=== PATIENT | female | born 1990 | race Caucasian/White ===

== ENCOUNTER 2018-11-08 17:14 | Emergency (ER) | payer OTHER ==
[2018-11-08] MEDS ORDERED: SODIUM CHLORIDE 0.9% 1,000 ML IV STA (17:53)
[2018-11-08] MEDS ORDERED: IPRATROPIUM-ALBUTEROL 3 ML NEB INHALATION STA (18:31)
--- NOTE | 2018-11-08 18:31 | ED ---
General Adult HPI - General Chief complaint: Syncope Stated complaint: Syncope Time Seen by Provider: 11/08/18 17:32 Source: patient, RN notes reviewed Mode of arrival: ambulatory Limitations: no limitations - History of Present Illness Initial comments: 27-year-old female without any significant past medical history presents to the emergency department for a chief complaint of syncope. Patient states this occurred just prior to arrival while she has at work. States that when she went to work she felt hot and sat down. States that when she stood up she got lightheaded and her vision went black. States she lost consciousness and was caught by her regional business development manager before she hit the ground. States that over the past few days she has had cough congestion and shortness of breath. States that at night she feels like she cannot get a deep breath. Denies any chest pain with this. Does admit to oral contraceptive use. Denies any recent travel. Patient denies any history of asthma but does admit to a smoking history as she is a current every day smoker. Patient has no other complaints at this time including chest pain, abdominal pain, nausea or vomiting, headache, or visual changes. - Related Data Home Medications Medication Instructions Recorded Confirmed Citalopram Hydrobromide [CeleXA] 20 mg PO DAILY 01/26/16 01/26/16 Norgestimate-Ethinyl Estradiol 1 tab PO DAILY 01/26/16 01/26/16 [Tri-Linyah Tablet] Previous Rx's Medication Instructions Recorded Ibuprofen [Motrin] 800 mg PO Q6HR PRN #30 tab 01/26/16 Albuterol Inhaler [Ventolin Hfa 1 - 2 puff INHALATION Q6HR PRN #1 11/08/18 Inhaler] inhaler predniSONE 50 mg PO DAILY #5 tablet 11/08/18 Allergies Allergy/AdvReac Type Severity Reaction Status Date / Time No Known Allergies Allergy Verified 11/08/18 17:23 Review of Systems ROS Statement: Those systems with pertinent positive or pertinent negative responses have been documented in the HPI. ROS Other: All systems not noted in ROS Statement are negative. Past Medical History Past Medical History: No Reported History History of Any Multi-Drug Resistant Organisms: None Reported Past Surgical History: No Surgical Hx Reported Past Psychological History: Anxiety Smoking Status: Current every day smoker Past Alcohol Use History: None Reported Past Drug Use History: None Reported General Exam Limitations: no limitations General appearance: alert, in no apparent distress Head exam: Present: atraumatic, normocephalic, normal inspection Eye exam: Present: normal appearance, PERRL, EOMI. Absent: scleral icterus, conjunctival injection, periorbital swelling ENT exam: Present: normal exam, normal oropharynx, mucous membranes moist, TM's normal bilaterally, normal external ear exam, other (Patient does have nasal congestion noted) Neck exam: Present: normal inspection, full ROM. Absent: tenderness, meningismus, lymphadenopathy Respiratory exam: Present: wheezes (Wheezing noted in the right lower lobe). Absent: respiratory distress, rales, rhonchi, stridor Cardiovascular Exam: Present: regular rate, normal rhythm, normal heart sounds. Absent: systolic murmur, diastolic murmur, rubs, gallop, clicks GI/Abdominal exam: Present: soft, normal bowel sounds. Absent: distended, tenderness, guarding, rebound, rigid Neurological exam: Present: alert, oriented X3 Psychiatric exam: Present: normal affect, normal mood Course Vital Signs 11/08/18 11/08/18 11/08/18 17:25 18:44 18:49 Temperature 98.3 F Pulse Rate 80 65 62 Respiratory 18 Rate Blood Pressure 110/72 O2 Sat by Pulse 98 Oximetry 11/08/18 19:35 Temperature 98 F Pulse Rate 80 Respiratory 16 Rate Blood Pressure 104/57 O2 Sat by Pulse 98 Oximetry - Reevaluation(s) Reevaluation #1: 11/08/18 18:45 Discussed smoking cessation for greater than 3 minutes with patient EKG Findings - EKG Comments: EKG Findings:: Normal sinus rhythm, ventricular rate 78, ID interval 158, QTc 442 Medical Decision Making - Medical Decision Making 27-year-old female without any significant past medical history presents for syncope. This occurred just prior to arrival when she was at work. Patient stood up, got lightheaded and had a syncopal episode. No injuries. She has had cough congestion and shortness of breath over the past 2 days as well. Denies fevers or chills. Admits to history of asthma denies smoking. On exam patient does have wheezing noted in the right lower lung field. DuoNeb given, recommended no smoking. CBC shows a mild reactive leukocytosis of 11.5. A CMP is unremarkable. Urine contaminated with 46 squamous cells, culture pending. Chest x-ray negative for consolidation. Patient reevaluated, feeling better. Patient will be given steroids for wheezing. Will also be given inhaler. Recommended returning if she has any worsening symptoms. - Lab Data Result diagrams: 11/08/18 18:03 11/08/18 18:03 Lab Results 11/08/18 11/08/18 11/08/18 Range/Units 18:03 18:03 18:03 WBC 11.5 H (3.8-10.6) k/uL RBC 4.72 (3.80-5.40) m/uL Hgb 14.0 (11.4-16.0) gm/dL Hct 42.2 (34.0-46.0) % MCV 89.4 (80.0-100.0) fL MCH 29.7 (25.0-35.0) pg MCHC 33.2 (31.0-37.0) g/dL RDW 12.8 (11.5-15.5) % Plt Count 312 (150-450) k/uL Neutrophils % 72 % Lymphocytes % 17 % Monocytes % 5 % Eosinophils % 5 % Basophils % 1 % Neutrophils # 8.3 H (1.3-7.7) k/uL Lymphocytes # 1.9 (1.0-4.8) k/uL Monocytes # 0.6 (0-1.0) k/uL Eosinophils # 0.6 (0-0.7) k/uL Basophils # 0.1 (0-0.2) k/uL PT 9.4 (9.0-12.0) sec INR 0.8 (<1.2) D-Dimer 0.26 (<0.60) mg/L FEU Sodium 135 L (137-145) mmol/L Potassium 4.2 (3.5-5.1) mmol/L Chloride 101 (98-107) mmol/L Carbon Dioxide 28 (22-30) mmol/L Anion Gap 6 mmol/L BUN 15 (7-17) mg/dL Creatinine 0.97 (0.52-1.04) mg/dL Est GFR (CKD-EPI)AfAm >90 (>60 ml/min/1.73 sqM) Est GFR (CKD-EPI)NonAf 81 (>60 ml/min/1.73 sqM) Glucose 99 (74-99) mg/dL Calcium 9.3 (8.4-10.2) mg/dL Total Bilirubin 0.2 (0.2-1.3) mg/dL AST 17 (14-36) U/L ALT 17 (9-52) U/L Alkaline Phosphatase 66 (38-126) U/L Troponin I (0.000-0.034) ng/mL Total Protein 7.3 (6.3-8.2) g/dL Albumin 4.0 (3.5-5.0) g/dL Urine Color Urine Appearance (Clear) Urine pH (5.0-8.0) Ur Specific [place] (1.001-1.035) Urine Protein (Negative) Urine Glucose (UA) (Negative) Urine Ketones (Negative) Urine Blood (Negative) Urine Nitrite (Negative) Urine Bilirubin (Negative) Urine Urobilinogen (<2.0) mg/dL Ur Leukocyte Esterase (Negative) Urine RBC (0-5) /hpf Urine WBC (0-5) /hpf Ur Squamous Epith Cells (0-4) /hpf Urine Mucus (None) /hpf Urine HCG, Qual (Not Detectd) 11/08/18 11/08/18 11/08/18 Range/Units 18:03 18:05 18:05 WBC (3.8-10.6) k/uL RBC (3.80-5.40) m/uL Hgb (11.4-16.0) gm/dL Hct (34.0-46.0) % MCV (80.0-100.0) fL MCH (25.0-35.0) pg MCHC (31.0-37.0) g/dL RDW (11.5-15.5) % Plt Count (150-450) k/uL Neutrophils % % Lymphocytes % % Monocytes % % Eosinophils % % Basophils % % Neutrophils # (1.3-7.7) k/uL Lymphocytes # (1.0-4.8) k/uL Monocytes # (0-1.0) k/uL Eosinophils # (0-0.7) k/uL Basophils # (0-0.2) k/uL PT (9.0-12.0) sec INR (<1.2) D-Dimer (<0.60) mg/L FEU Sodium (137-145) mmol/L Potassium (3.5-5.1) mmol/L Chloride (98-107) mmol/L Carbon Dioxide (22-30) mmol/L Anion Gap mmol/L BUN (7-17) mg/dL Creatinine (0.52-1.04) mg/dL Est GFR (CKD-EPI)AfAm (>60 ml/min/1.73 sqM) Est GFR (CKD-EPI)NonAf (>60 ml/min/1.73 sqM) Glucose (74-99) mg/dL Calcium (8.4-10.2) mg/dL Total Bilirubin (0.2-1.3) mg/dL AST (14-36) U/L ALT (9-52) U/L Alkaline Phosphatase (38-126) U/L Troponin I <0.012 (0.000-0.034) ng/mL Total Protein (6.3-8.2) g/dL Albumin (3.5-5.0) g/dL Urine Color Yellow Urine Appearance Cloudy H (Clear) Urine pH 6.0 (5.0-8.0) Ur Specific [place] 1.032 (1.001-1.035) Urine Protein 1+ H (Negative) Urine Glucose (UA) Negative (Negative) Urine Ketones Trace H (Negative) Urine Blood Trace H (Negative) Urine Nitrite Negative (Negative) Urine Bilirubin Negative (Negative) Urine Urobilinogen 3.0 (<2.0) mg/dL Ur Leukocyte Esterase Large H (Negative) Urine RBC 5 (0-5) /hpf Urine WBC 16 H (0-5) /hpf Ur Squamous Epith Cells 46 H (0-4) /hpf Urine Mucus Occasional H (None) /hpf Urine HCG, Qual Not Detected (Not Detectd) Disposition Clinical Impression: Syncope, Viral upper respiratory infection Disposition: HOME SELF-CARE Condition: Good Instructions (If sedation given, give patient instructions): Syncope (ED), Upper Respiratory Infection (ED) Additional Instructions: Please take steroid as directed. Use inhaler as needed. Follow-up with primary care in 1-2 days. Return to the emergency department if you have any worsening symptoms. Prescriptions: predniSONE 50 mg PO DAILY #5 tablet Albuterol Inhaler [Ventolin Hfa Inhaler] 1 - 2 puff INHALATION Q6HR PRN #1 inhaler PRN Reason: Shortness Of Breath Is patient prescribed a controlled substance at d/c from ED?: No Referrals: Jordana Becker MD [Primary Care Provider] - 1-2 days Time of Disposition: 19:35
[2018-11-08 18:36] LABS: Basophils # (A) 0.1 k/uL (0-0.2); Basophils % (A) 1 %; Eosinophils # (A) 0.6 k/uL (0-0.7); Eosinophils % (A) 5 %; HCT 42.2 % (34.0-46.0); Lymphocytes # (A) 1.9 k/uL (1.0-4.8); Lymphocytes % (A) 17 %; MCH 29.7 pg (25.0-35.0); MCHC 33.2 g/dL (31.0-37.0); MCV 89.4 fL (80.0-100.0); Mean Platelet Volume 6.8; Monocytes # (A) 0.6 k/uL (0-1.0); Monocytes % (A) 5 %; Neutrophils # (A) 8.3 k/uL (1.3-7.7); Neutrophils % (A) 72 %; Platelet Count 312 k/uL (150-450); RBC 4.72 m/uL (3.80-5.40); RDW 12.8 % (11.5-15.5); WBC 11.5 k/uL (3.8-10.6)
[2018-11-08 18:40] LABS: Appearance,Urine Cloudy (Clear); Bilirubin,Urine Negative (Negative); Blood,Urine Trace (Negative); Color,Urine Yellow; Glucose,Urine (UA) Negative (Negative); Ketones,Urine Trace (Negative); Leukocyte Esterase,Urine Large (Negative); Mucus,Urine Occasional /hpf; Nitrite,Urine Negative (Negative); Protein,Urine 1+ (Negative); RBC,Urine 5 /hpf (0-5); Specific Gravity,Urine 1.032 (1.001-1.035); Squamous Epithelial Cell,Urine 46 /hpf (0-4); WBC,Urine 16 /hpf (0-5)
[2018-11-08 18:45] LABS: D-Dimer 0.26 mg/L FEU (<0.60); INR 0.8 (<1.2); Prothrombin Time 9.4 sec (9.0-12.0)
[2018-11-08 19:02] LABS: ALT 17 U/L (9-52); AST 17 U/L (14-36); African American GFR (CKD) >90 (>60 ml/min/1.73 sqM); Alkaline Phosphatase 66 U/L (38-126); Anion Gap 6 mmol/L; Blood Urea Nitrogen 15 mg/dL (7-17); Calcium 9.3 mg/dL (8.4-10.2); Carbon Dioxide 28 mmol/L (22-30); Chloride 101 mmol/L (98-107); Glucose 99 mg/dL (74-99); Potassium 4.2 mmol/L (3.5-5.1); Sodium 135 mmol/L (137-145); Total Bilirubin 0.2 mg/dL (0.2-1.3); Total Protein 7.3 g/dL (6.3-8.2)
[2018-11-08 19:36] VITALS: BP 104/57; PULSE 80; RESP 16; TEMP 98
--- NOTE | 2018-11-08 19:36 | XR ---
EXAMINATION TYPE: XR chest 2V DATE OF EXAM: 11/08/2018 COMPARISON: NONE HISTORY: Cough TECHNIQUE: Frontal and lateral views of the chest are obtained. FINDINGS: Heart and mediastinum are normal. Lungs are clear. Diaphragm is normal. Bony thorax appear s normal. There are chest leads. IMPRESSION: Normal chest.
== END 2018-11-08 20:45 | disposition home or self-care (01) ==
LOC: EC 17:14
DX: R55 Syncope and collapse (principal); J06.9 Acute upper respiratory infection, unspecified; D72.829 Elevated white blood cell count, unspecified; R82.8 Abnormal findings on cytological and histological examination of urine; F41.9 Anxiety disorder, unspecified; F17.200 Nicotine dependence, unspecified, uncomplicated; Z79.3 Long term (current) use of hormonal contraceptives; Z79.899 Other long term (current) drug therapy; Z71.6 Tobacco abuse counseling
CPT/HCPCS: 36415; 71046; 80053; 81001; 81025; 84484; 85025; 85379; 85610; 87086; 93005; 94640; 96360; 99284

== ENCOUNTER → 2020-07-18 | Outpatient (CLI) | payer OTHER | END | disposition home or self-care (01) | LOC: LABWHC1 16:20 | PROVIDERS: ATTEND Obstetrics & Gynecology | DX: Z34.01 Encounter for supervision of normal first pregnancy, first trimester (principal); Z3A.00 Weeks of gestation of pregnancy not specified | CPT/HCPCS: 36415; 84702 ==

== ENCOUNTER 2021-02-16 17:08 | Outpatient (CLI) | payer OTHER ==
[2021-02-16 18:09] VITALS: BP 122/64; PULSE 82; RESP 18; TEMP 97.5
--- NOTE | 2021-02-16 18:15 | P.MSEPDOC ---
Presenting Problems - Arrival Data Date of Arrival on Unit: 02/16/21 Time of Arrival on Unit: 17:08 Mode of Transport: Ambulatory - Complaint OB-Reason for Admission/Chief Complaint: NST Medical History - Information : 1 Para: 0 Term: 0 : 0 Abortions: Spontaneous or Elective: 0 Number of Living Children: 0 - Gestational Age Gestational Age by CANDI (wks/days): 35 Weeks and 0 Days Review of Systems - Review of Systems Constitutional: No problems Breast: No problems ENT: No problems Cardiovascular: No problems Respiratory: No problems Gastrointestinal: No problems Genitourinary: No problems Musculoskeletal: No problems Neurological: No problems Skin: No problems Vital Signs - Temperature Temperature: 97.5 F Temperature Source: Temporal Artery Scan - Pulse Right Pulse Rate: 82 Pulse Assessment Method: Automatic Cuff - Respirations Respiratory Rate: 18 Oxygen Delivery Method: Room Air O2 Sat by Pulse Oximetry: 98 - Blood Pressure Right Arm Blood Pressure: 122/64 Blood Pressure Mean: 83 Blood Pressure Source: Automatic Cuff Medical Screen Scoring - Cervical Exam Membranes: Intact - Uterine Contractions Intensity: Absent Resting: Soft to palpation - Assessment - Baby A Baseline FHR: 135 Heart Rate - NICHD Category: Category I (Normal) NST: Reactive Physician Notification - Physician Notified Physician Notified Date: 02/16/21 Physician Notified Time: 17:44 Physician: Roosevelt Chadwick New Order Received: Yes - Notification Comment Comment: Pt sent from office for NST d/t IUGR. NST reactive. Pt to see MFM and Dr. Chadwick this week. May dc with scheduled follow up apts. Maternal Triage Index - Maternal Triage Index Presenting for scheduled procedure w/no complaint: Yes - Scheduled/Requesting Priority 5 Scheduled/Requesting Priority 5: Yes Criteria Met for Priority 5: Sent from office for NST. Disposition - Disposition OB Disposition: Discharge to home Discharge Date: 02/16/21 Discharge Time: 17:50 I agree with the RN Medical Screening Exam: Yes Case reviewed; plan agreed upon as documented in EMR&OBIX.: Yes Diagnosis: MATERN CARE FOR OTH OR SUSP POOR FETL GRTH, 1ST TRI, UNSP (Patient was seen in the office at the end of the day today for routine 35 week visit and ultrasound showed estimated weight at around 1650 g which is between the fifth in the 10th percentile. I contacted maternal- medicine and she is going to see them within the next 7 days for evaluation and consultation. Patient is sent here for a nonstress test. Nonstress test is reactive. Patient is having good movement. I discussed management protocol and she will come see me in 2 days for repeat nonstress test and call if any concerns with decreased movement, etc.)
== END 2021-02-16 17:50 | disposition home or self-care (01) ==
LOC: FBPOP 17:08
PROVIDERS: ATTEND Obstetrics & Gynecology
DX: O36.5990 Maternal care for other known or suspected poor fetal growth, unspecified trimester, not applicable or unspecified (principal); Z3A.35 35 weeks gestation of pregnancy
CPT/HCPCS: 59025; G0463; 99213

== ENCOUNTER 2021-02-26 15:23 | Outpatient (CLI) | payer OTHER ==
[2021-02-26] MEDS ORDERED: BETAMET ACET-BETAMETH SOD PHOS 6 MG/ML MDV IM SCH (15:30)
== END 2021-02-26 15:48 ==
LOC: FBPOP 15:23
PROVIDERS: ATTEND Obstetrics & Gynecology
DX: O26.893 Other specified pregnancy related conditions, third trimester (principal); Z3A.36 36 weeks gestation of pregnancy
CPT/HCPCS: 96372; J0702

== ENCOUNTER 2021-02-27 15:13 | Outpatient (CLI) | payer OTHER ==
[2021-02-27] MEDS ORDERED: BETAMET ACET-BETAMETH SOD PHOS 6 MG/ML MDV IM SCH (15:30)
--- NOTE | 2021-03-03 06:46 | P.MSEPDOC ---
Presenting Problems - Arrival Data Date of Arrival on Unit: 02/27/21 Time of Arrival on Unit: 15:13 Mode of Transport: Ambulatory - Complaint OB-Reason for Admission/Chief Complaint: Celestone Injection Comment: Patient presents to triage for second celestone injection per written orders from Dr. Chadwick. Medical History - Gestational Age Gestational Age by CANDI (wks/days): 36 Weeks and 4 Days - History Complications: Breech, Smoker, Other Comment: IUGR Review of Systems - Review of Systems Constitutional: No problems Breast: No problems ENT: No problems Cardiovascular: No problems Respiratory: No problems Gastrointestinal: No problems Genitourinary: No problems Musculoskeletal: No problems Neurological: No problems Skin: No problems Physician Notification - Notification Comment Comment: Patient instructed to follow up on [facility] on Tuesday at 0545 for primary section for IUGR and breech. Maternal Triage Index - Maternal Triage Index Presenting for scheduled procedure w/no complaint: Yes - Scheduled/Requesting Priority 5 Scheduled/Requesting Priority 5: Yes Criteria Met for Priority 5: Patient presents to triage for second celestone shot per written orders from Dr. Chadwick. Disposition - Disposition OB Disposition: Triage, Discharge to home, Written follow up instructions reviewed Discharge Date: 02/27/21 Discharge Time: 15:35 I agree with the RN Medical Screening Exam: Yes Case reviewed; plan agreed upon as documented in EMR&OBIX.: Yes Diagnosis: RELATED CONDITIONS, UNSPECIFIED, THIRD TRIMESTER (patient presents for Celestone injections secondary to intrauterine growth restriction.)
== END 2021-02-27 15:35 | disposition home or self-care (01) ==
LOC: FBPOP 15:13
PROVIDERS: ATTEND Obstetrics & Gynecology
DX: O36.5930 Maternal care for other known or suspected poor fetal growth, third trimester, not applicable or unspecified (principal); Z3A.36 36 weeks gestation of pregnancy
CPT/HCPCS: 96372; J0702

== ENCOUNTER 2021-03-02 05:40 | Inpatient (IN) | payer OTHER ==
--- NOTE | 2021-02-27 08:15 | P.HPOB ---
History of Present Illness H&P Date: 02/27/21 Chief Complaint: Primary C/S for breech and IUGR This patient is a pleasant 30 yr female with EDC 03/23/2021 estimated gestational age 37 0/7 weeks who presents to L&D for primary CS due to breech and IUGR. Her care is such that at 35 wks an ultrasound showed severe IUGR. She was referred to [facility] and had normal umbilical artery dopplers and confirmed IUGR (3%). They recommended continued antepartum surveillance and delivery at 37 weeks. I did give her steroids. otherwise has been uncomplicated. Review of Systems Genitourinary: Reports Menstruation: Reports amenorrhea Past Medical History Past Medical History: No Reported History History of Any Multi-Drug Resistant Organisms: None Reported Past Surgical History: No Surgical Hx Reported Past Anesthesia/Blood Transfusion Reactions: No Reported Reaction Additional Past Anesthesia/Blood Transfusion Reaction / Comment(s): has never had anesthesia Past Psychological History: Anxiety Smoking Status: Former smoker Past Alcohol Use History: None Reported Past Drug Use History: None Reported - Past Family History Mother Family Medical History: No Reported History Medications and Allergies Home Medications Medication Instructions Recorded Confirmed Type Ferrous Sulfate [Iron] 1 tab PO DAILY 02/16/21 02/26/21 History Pnv,Calcium 72/Iron/Folic Acid 1 tab PO DAILY 02/16/21 02/26/21 History [ Plus Tablet] Allergies Allergy/AdvReac Type Severity Reaction Status Date / Time No Known Allergies Allergy Verified 02/26/21 15:26 Exam - OBG Physical Exam Abdomen: bowel sounds normal, no diffuse tenderness, no bruit present, no guarding noted, no hepatomegaly, no splenomegaly, no mass Vagina: normal moisture, no discharge Cervix: no lesion, no discharge Uterus: enlarged Results Labs: A negative, Rubella Immune, [id number] negative, Rhogam (12/25), Glucola 100, ultrasound at [facility] EFW at 3% with normal umbilical artery dopplers. Assessment and Plan Assessment: This is a pleasant 30 female estimated gestational age 37 0/7 weeks with severe IUGR and breech presentation. Plan is primary LT C/S. I have discussed this surgery and risks with Stephanie, including risks: infection, bleeding, possible injury to bowel/bladder/vessels and/or other organs. Risks of DVT and PE. She understands most likely her baby will need to go to Level I nursery for observation/care. All of her questions were answered and a written consent obtained. (1) 37 weeks gestation of Status: Acute Code(s): Z3A.37 - 37 WEEKS GESTATION OF SNOMED Code(s): 80740849 (2) IUGR (intrauterine growth restriction) Status: Acute Code(s): OHB3897 - SNOMED Code(s): 67101918 (3) Breech presentation Status: Acute Code(s): O32.1XX0 - MATERNAL CARE FOR BREECH PRESENTATION, UNSP SNOMED Code(s): 7854424
[~2021-03-02 05:40] MED LIST: NALOXONE 0.4 MG/ML 1 ML VIAL IV PRN
[2021-03-02] MEDS ORDERED: CITRIC ACID-SODIUM CITRATE 15 ML CUP PO ONE (05:54)
[2021-03-02] MEDS ORDERED: LACTATED RINGERS 1,000 ML IV ONE (05:54)
[2021-03-02 06:05] LABS: Basophils # (A) 0.1 k/uL (0-0.2); Basophils % (A) 1 %; Eosinophils # (A) 0.2 k/uL (0-0.7); Eosinophils % (A) 1 %; HCT 32.6 % (34.0-46.0); HGB 11.6 gm/dL (11.4-16.0); Lymphocytes # (A) 2.3 k/uL (1.0-4.8); Lymphocytes % (A) 13 %; MCH 31.6 pg (25.0-35.0); MCHC 35.5 g/dL (31.0-37.0); Mean Platelet Volume 7.9; Monocytes # (A) 0.9 k/uL (0-1.0); Monocytes % (A) 5 %; Neutrophils # (A) 13.8 k/uL (1.3-7.7); Neutrophils % (A) 79 %; Platelet Count 222 k/uL (150-450); RBC 3.66 m/uL (3.80-5.40); RDW 14.2 % (11.5-15.5); WBC 17.4 k/uL (3.8-10.6)
[2021-03-02] MEDS: LACTATED RINGERS 1,000 ML IV SCH ×7 (06:44→21:50)
[2021-03-02] MEDS ORDERED: HYDROmorphone 0.5 MG/0.5 ML SYRINGE IVP PRN (07:00)
[2021-03-02] MEDS ORDERED: ONDANSETRON 4 MG/2 ML VIAL ONE (07:51)
[2021-03-02] MEDS ORDERED: KETOROLAC 15 MG/ML 1 ML VIAL ONE (07:51)
[2021-03-02] MEDS ORDERED: MORPHINE SULFATE (PF) 0.3 MG/0.3 ML SYR ONE (07:51)
[2021-03-02] MEDS ORDERED: NALBUPHINE 10 MG/ML (1 ML AMP) ONE (07:51)
[2021-03-02] MEDS ORDERED: Rhogam IMMUNE GLOBULIN 1,500 UNIT/1 ML IM ONE (08:47)
[2021-03-02] MEDS ORDERED: METOCLOPRAMIDE 5 MG/ML 2 ML VIAL IVP PRN (08:47)
[2021-03-02] MEDS ORDERED: diphenhydrAMINE 25 MG CAP PO PRN (08:47)
[2021-03-02] MEDS ORDERED: diphenhydrAMINE 50 MG/ML 1 ML VIAL IVP PRN (08:47)
[2021-03-02] MEDS ORDERED: ONDANSETRON 4 MG/2 ML VIAL IVP PRN (08:47)
[2021-03-02] MEDS ORDERED: ZOLPIDEM 5 MG TAB PO PRN (08:47)
[2021-03-02] MEDS ORDERED: OXYTOCIN 30 UNITS/500 ML NS 30 UNIT in SALINE 1 500ML.BAG IV SCH (08:47)
--- NOTE | 2021-03-02 17:41 | P.OP ---
Date of Procedure: 03/02/21 Preoperative Diagnosis: #1: 37-0/7 week intrauterine . #2: Severe intrauterine growth restriction. #3: Breech presentation Postoperative Diagnosis: same Procedure(s) Performed: primary low transverse section. Anesthesia: spinal Surgeon: Roosevelt Chadwick Radiological Technologist #1: Arin Gonzalez Estimated Blood Loss (ml): 600 Pathology: other (Placenta) Condition: stable Disposition: floor Indications for Procedure: Please see dictated H&P for intimate details of this patient's admission. In brief summary this is a pleasant 30-year-old 1 para 0 female 37-0/7 weeks gestation who is admitted to labor and delivery for primary sec tion secondary to severe IUGR and persistent breech presentation. Patient seen maternal medicine and they recommended delivery at 37 weeks. Patient does understand this procedure and risks including risks of infection, bleeding, possible injury bowel, bladder, vessels, and/or other organs. All the patient's questions are answered written consent is obtained. Operative Findings: This was a vigorous viable male infant Apgars 9 and 9 delivery time is 0809 hrs. Infant's weight was 4 lbs. 15 oz. was valarie breech presentation. Description of Procedure: This patient is taken to the operating room where she is sat up and spinal anesthetic is administered without incident. Patient had already had a Wilder catheter placed to straight drain. After the appropriate timeout she has abdominal prep and drape. With an adequate level of anesthesia, scalpels and taken Pfannenstiel skin incision is then made. A second scalpel is taken down to the fascia and the fascia scored with a knife. Fascial incision extended bilaterally using the Strickland scissors. The fascia is then dissected off the rectus muscles sharply. Rectus muscles are the peritoneum identified and entered sharply. Peritoneal incision extended superior and inferior without difficulty. Bladder blade is then placed. Bladder peritoneum was taken off the lower uterine segment sharply. Scalpels and taken a low transverse uterine incision is then made. Using a hemostat, I enter the uterine cavity bluntly and there is loss of clear fluid. The is found to be sacrum anterior, valarie breech presentation. Using the usual breech maneuvers we have delivery of viable male infant Apgars are 9 and 9 delivery time was 0809 hrs. Infant has spontaneous respiration and good cry and grossly appears normal. After delivery of the the umbilical cords doubly clamped and cut. Infant is handed off to the nurses in attendance. The cord blood is obtained for Rh status. Placenta is then manually extracted intact. Uterus is then externalized and uterine incision demarcated with Jose clamps. Uterus is then closed using 0 Vicryl running locked fashion in 2 layers. There is an area of bleeding on the left side and additional [id number] sutures are placed. With excellent hemostasis is noted the bladder peritoneum was then reapproximated using 3-0 Vicryl. Excess fluid is removed from the abdomen and pelvis. Uterus is placed back in the abdomen. The uterus, tubes, ovaries appear normal for term gestation. The bridle peritoneum was then closed in 0 Vicryl running fashion. Rectus muscles reapproximated Vicryl interrupted fashion. Fascial incision is then closed using a 0 PDS running fashion. Fascial incision is intact and hemostatic. Subcutaneous tissues and closed using a 3-0 Vicryl. Skin is and closed using jaret. All counts are correct 3. There are no complications. and mother are taken to the birthing suite in satisfactory condition.
[2021-03-02] MEDS: KETOROLAC 30 MG/ML 1 ML VIAL IVP SCH (18:13)
[2021-03-02] MEDS: SENNOSIDES-DOCUSATE SODIUM 1 EACH TAB PO PRN (20:04)
[2021-03-03] MEDS: KETOROLAC 30 MG/ML 1 ML VIAL IVP SCH ×2 (01:21→08:21)
[2021-03-03] MEDS: LACTATED RINGERS 1,000 ML IV SCH (02:21)
--- NOTE | 2021-03-03 06:40 | P.PNOBGPC ---
Subjective - Subjective Patient reports: Reports appetite normal, Reports voiding normally, Reports pain well controlled, Reports ambulating normally : doing well Objective - Vital Signs Latest vital signs: Vital Signs Temp Pulse Resp BP Pulse Ox 03/03/21 03:45 98.2 F 89 16 113/65 96 03/03/21 01:20 97.9 F 74 16 122/73 95 03/02/21 20:05 98.3 F 89 18 115/68 96 03/02/21 15:55 97.9 F 72 17 120/72 98 03/02/21 10:47 75 16 123/60 03/02/21 10:15 98.0 F 71 16 132/75 03/02/21 09:45 73 16 115/58 98 03/02/21 09:30 73 16 123/59 97 03/02/21 09:15 70 15 137/61 99 03/02/21 09:00 77 16 132/69 98 03/02/21 08:51 98 03/02/21 08:45 97.1 F L 84 16 133/65 98 Intake and Output 03/02/21 03/02/21 03/03/21 14:59 22:59 06:59 Output Total 1357 675 400 Balance -1357 -675 -400 Output: Urine 900 675 400 Estimated Blood Loss 457 Other: Voiding Method Toilet - Exam Lungs: bilateral: normal Chest: Normal S1, Normal S2 Extremities: Present: normal Abdomen: Present: normal appearance, soft. Absent: distention, tenderness Incision: Present: normal, dry, intact Uterus: Present: normal, firm Assessment and Plan Assessment: postoperative day #1. Patient is resting without new complaints. Vital signs are stable and she is afebrile. Uterus is firm nontender and her incision is intact and dry. CBC is pending at time of this dictation. My impression is that this is a normal postoperative course. Plan is to check CBC, encourage ambulation, advance her diet, and allow the patient to shower. (1) 37 weeks gestation of Current Visit: No Status: Acute Code(s): Z3A.37 - 37 WEEKS GESTATION OF SNOMED Code(s): 44635539 (2) IUGR (intrauterine growth restriction) Current Visit: No Status: Acute Code(s): PSL5973 - SNOMED Code(s): 38585228 (3) Breech presentation Current Visit: No Status: Acute Code(s): O32.1XX0 - MATERNAL CARE FOR BREECH PRESENTATION, UNSP SNOMED Code(s): 3497586
[2021-03-03 06:44] LABS: Basophils % (A) 0 %; Eosinophils # (A) 0.2 k/uL (0-0.7); Eosinophils % (A) 1 %; HCT 28.9 % (34.0-46.0); Lymphocytes # (A) 1.9 k/uL (1.0-4.8); Lymphocytes % (A) 14 %; MCH 31.3 pg (25.0-35.0); MCHC 34.7 g/dL (31.0-37.0); Mean Platelet Volume 8.1; Monocytes # (A) 0.5 k/uL (0-1.0); Monocytes % (A) 4 %; Neutrophils # (A) 10.7 k/uL (1.3-7.7); Neutrophils % (A) 79 %; Platelet Count 180 k/uL (150-450); RBC 3.21 m/uL (3.80-5.40); RDW 14.3 % (11.5-15.5); WBC 13.5 k/uL (3.8-10.6)
--- NOTE | 2021-03-03 07:11 | P.PN ---
Progress Note - Text Date: 03/03/2021 Time: 06:52 The patient is status post section Vital signs stable VAS: 0-10 Patient has no complaints of pain. The patient incurred some minimal itching yesterday, this itching is now subsiding. Pain meds to be managed by service.
[2021-03-03] MEDS: IBUPROFEN 600 MG TAB PO PRN ×2 (08:20→15:56)
[2021-03-03] MEDS: SENNOSIDES-DOCUSATE SODIUM 1 EACH TAB PO PRN ×2 (08:20→20:06)
[2021-03-03] MEDS: ACETAMINOPHEN TAB 500 MG TAB PO PRN ×2 (12:54→20:07)
[2021-03-04 03:39] VITALS: RESP 16
--- NOTE | 2021-03-04 06:30 | P.PNOBGPC ---
Subjective - Subjective Patient reports: Reports appetite normal, Reports voiding normally, Reports pain well controlled, Reports ambulating normally : doing well Objective - Vital Signs Latest vital signs: Vital Signs Temp Pulse Resp BP Pulse Ox 03/04/21 00:00 98.4 F 90 16 112/68 03/03/21 16:00 98.0 F 98 18 115/74 98 03/03/21 08:15 98.2 F 85 16 122/56 Intake and Output 03/03/21 03/03/21 03/04/21 14:59 22:59 06:59 Other: Voiding Method Toilet - Exam Lungs: bilateral: normal Chest: Normal S1, Normal S2 Extremities: Present: normal Abdomen: Present: normal appearance, soft. Absent: distention, tenderness Incision: Present: normal, dry, intact Uterus: Present: normal, firm - Labs Labs: Abnormal Lab Results - Last 24 Hours (Table) 03/03/21 Range/Units 06:25 WBC 13.5 H (3.8-10.6) k/uL RBC 3.21 L (3.80-5.40) m/uL Hgb 10.0 L D (11.4-16.0) gm/dL Hct 28.9 L (34.0-46.0) % Neutrophils # 10.7 H (1.3-7.7) k/uL Assessment and Plan Assessment: Postoperative day #2. Patient is resting without complaints. Vital signs are stable and she is afebrile. Uterus is firm nontender and she is having normal lochia. Incision is intact and dry. CBC yesterday showed a hemoglobin of 10.0 which is appropriate change from preop. Patient's tolerating regular diet, am bulating, and urinating without difficulty. After talking to the patient, we've decided to stay until tomorrow because the baby is IUGR although it does appear to be feeding well and doing well. Plan today is to continue routine postoperative care and discharge home tomorrow (1) 37 weeks gestation of Current Visit: No Status: Acute Code(s): Z3A.37 - 37 WEEKS GESTATION OF SNOMED Code(s): 06955794 (2) IUGR (intrauterine growth restriction) Current Visit: No Status: Acute Code(s): GYL9846 - SNOMED Code(s): 83166894 (3) Breech presentation Current Visit: No Status: Acute Code(s): O32.1XX0 - MATERNAL CARE FOR BREECH PRESENTATION, UNSP SNOMED Code(s): 3365004
[2021-03-04] MEDS: IBUPROFEN 600 MG TAB PO PRN ×2 (08:26→15:22)
[2021-03-04] MEDS: SENNOSIDES-DOCUSATE SODIUM 1 EACH TAB PO PRN ×2 (08:26→20:03)
[2021-03-04] MEDS: KETOROLAC 30 MG/ML 1 ML VIAL IVP SCH (10:12)
[2021-03-04] MEDS: ACETAMINOPHEN TAB 500 MG TAB PO PRN ×2 (11:41→17:51)
[2021-03-05] MEDS: IBUPROFEN 600 MG TAB PO PRN ×2 (01:04→08:09)
--- NOTE | 2021-03-05 06:07 | P.PNOBGPC ---
Subjective - Subjective Patient reports: Reports appetite normal, Reports voiding normally, Reports pain well controlled, Reports ambulating normally : doing well Objective - Vital Signs Latest vital signs: Vital Signs Temp Pulse Resp BP Pulse Ox 03/04/21 15:35 98 F 87 16 132/81 99 03/04/21 08:20 98.1 F 77 16 124/77 97 - Exam Lungs: bilateral: normal Chest: Normal S1, Normal S2 Extremities: Present: normal Abdomen: Present: normal appearance, soft. Absent: distention, tenderness Incision: Present: normal, dry, intact Uterus: Present: normal, firm Assessment and Plan Assessment: Post operative day #2. Patient is resting without complaints and wishes to go home. Vital signs are stable she's afebrile. Uterus is firm nontender and she is having normal lochia. Incision is intact and dry. My impression is that this is a normal postoperative course. Plan is to continue postoperative care and discharge home later today. (1) 37 weeks gestation of Current Visit: No Status: Acute Code(s): Z3A.37 - 37 WEEKS GESTATION OF SNOMED Code(s): 86022187 (2) IUGR (intrauterine growth restriction) Current Visit: No Status: Acute Code(s): CXA6979 - SNOMED Code(s): 31512055 (3) Breech presentation Current Visit: No Status: Acute Code(s): O32.1XX0 - MATERNAL CARE FOR BREECH PRESENTATION, UNSP SNOMED Code(s): 7894319
--- NOTE | 2021-03-05 06:13 | P.DS ---
Providers Date of admission: 03/02/21 05:40 Expected date of discharge: 03/05/21 Attending physician: Roosevelt Chadwick Primary care physician: Eugenio Silveira - Discharge Diagnosis(es) (1) 37 weeks gestation of Current Visit: No Status: Acute (2) IUGR (intrauterine growth restriction) Current Visit: No Status: Acute (3) Breech presentation Current Visit: No Status: Acute Hospital Course: Please see dictated H&P for intimate details of this patient's admission. Brief summary this is a pleasant 30-year-old 1 para 0 female 37 weeks gestation admitted to labor and delivery for elective primary section secondary to persistent breech presentation and severe intrauterine growth restriction. Patient undergoes above-named surgery for viable male . Please see dictated operative note. Postoperative 3 patient's felt be stable for discharge home follow up with me in 1 week. Procedures: primary low transverse section Patient Condition at Discharge: Good Plan - Discharge Summary Discharge Rx Participant: No New Discharge Prescriptions: New oxyCODONE HCL [OxyIR] 5 mg PO Q4HR PRN #18 tab PRN Reason: Pain Ibuprofen [Motrin] 600 mg PO Q6H PRN #30 tab PRN Reason: Pain No Action Pnv,Calcium 72/Iron/Folic Acid [ Plus Tablet] 1 tab PO DAILY Ferrous Sulfate [Iron] 1 tab PO DAILY Discharge Medication List Ferrous Sulfate [Iron] 1 tab PO DAILY 02/16/21 [History] Pnv,Calcium 72/Iron/Folic Acid [ Plus Tablet] 1 tab PO DAILY 02/16/21 [History] Ibuprofen [Motrin] 600 mg PO Q6H PRN #30 tab 03/05/21 [Rx] oxyCODONE HCL [OxyIR] 5 mg PO Q4HR PRN #18 tab 03/05/21 [Rx] Follow up Appointment(s)/Referral(s): Roosevelt Chadwick MD [STAFF PHYSICIAN] - 03/10/21 9:15 am (Please see me also for a 6 week check on 04/14/2021 @11:15am) Patient Instructions/Handouts: (DC) Activity/Diet/Wound Care/Special Instructions: No strenuous activities or heavy lifting for 6 weeks. No intercourse or anything per vagina for 6 weeks. Please call if any fever, chills, excessive vaginal bleeding, and/or abdominal pain. Discharge Disposition: HOME SELF-CARE
[2021-03-05] MEDS: SENNOSIDES-DOCUSATE SODIUM 1 EACH TAB PO PRN (08:09)
[2021-03-05 08:42] VITALS: BP 138/75; PULSE 76; TEMP 98
== END 2021-03-05 09:42 | disposition home or self-care (01) | DRG 788 ==
LOC: 4FBP 05:40
PROVIDERS: ADMIT Obstetrics & Gynecology; ATTEND Obstetrics & Gynecology
PROC: 10D00Z1 Extraction of Products of Conception, Low, Open Approach (ICD-10-PCS; principal; 2021-03-02 08:00)
DX: O36.5930 Maternal care for other known or suspected poor fetal growth, third trimester, not applicable or unspecified (principal); F41.9 Anxiety disorder, unspecified; O32.1XX0 Maternal care for breech presentation, not applicable or unspecified; O99.344 Other mental disorders complicating childbirth; Z37.0 Single live birth; Z3A.37 37 weeks gestation of pregnancy; Z87.891 Personal history of nicotine dependence; O99.73 Diseases of the skin and subcutaneous tissue complicating the puerperium; L29.9 Pruritus, unspecified
CPT/HCPCS: 85025; 86850; 86900; 86901; 88307

== ENCOUNTER 2021-10-30 08:40 | Emergency (ER) | payer OTHER ==
[2021-10-30 08:54] VITALS: RESP 20
[2021-10-30] MEDS ORDERED: ACETAMINOPHEN TAB 325 MG TAB PO STA (08:57)
[2021-10-30] MEDS ORDERED: IBUPROFEN 800 MG TAB PO STA (09:24)
--- NOTE | 2021-10-30 09:26 | ED ---
URI HPI - General Chief Complaint: Upper Respiratory Infection Stated Complaint: Fever,Cough,running nose Time Seen by Provider: 10/30/21 08:57 Source: patient, family, RN notes reviewed, old records reviewed Mode of arrival: ambulatory Limitations: no limitations - History of Present Illness Initial Comments: This is a well-appearing 30-year-old female that presents to the emergency room with cough, fever and body aches since last night. Patient states that her 7-month-old son has similar symptoms that started last night. She states that she did take an at home Covid test that was negative. She has not been vaccinated, states that she did have Covid last year when she was . She denies any vomiting or diarrhea. She denies cigarette smoking. Does vape. Complaint: fever, cough, sore throat, other (body aches) -: days(s) (1) Severity scale (1-10): 7 Quality: aching Consistency: constant Improves With: nothing Treatments Prior to Arrival: Acetaminophen - Related Data Home Medications Medication Instructions Recorded Confirmed Ferrous Sulfate [Iron] 1 tab PO DAILY 02/16/21 03/02/21 Vit No.180/Iron/Folic 1 tab PO DAILY 02/16/21 03/02/21 [ Plus Tablet] Previous Rx's Medication Instructions Recorded Ibuprofen [Motrin] 600 mg PO Q6H PRN #30 tab 03/05/21 oxyCODONE HCL [OxyIR] 5 mg PO Q4HR PRN #18 tab 03/05/21 Allergies Allergy/AdvReac Type Severity Reaction Status Date / Time No Known Allergies Allergy Verified 10/30/21 08:54 Review of Systems ROS Statement: Those systems with pertinent positive or pertinent negative responses have been documented in the HPI. ROS Other: All systems not noted in ROS Statement are negative. Past Medical History Past Medical History: No Reported History History of Any Multi-Drug Resistant Organisms: None Reported Past Surgical History: No Surgical Hx Reported Past Anesthesia/Blood Transfusion Reactions: No Reported Reaction Additional Past Anesthesia/Blood Transfusion Reaction / Comment(s): has never had anesthesia Past Psychological History: Anxiety Smoking Status: Current every day smoker, Vaper Past Alcohol Use History: None Reported Past Drug Use History: None Reported - Past Family History Mother Family Medical History: No Reported History General Exam Limitations: no limitations General appearance: alert, in no apparent distress Head exam: Present: atraumatic Eye exam: Present: normal appearance ENT exam: Present: normal oropharynx, mucous membranes moist Neck exam: Present: normal inspection, tenderness, full ROM. Absent: menin gismus, lymphadenopathy Respiratory exam: Present: normal lung sounds bilaterally. Absent: respiratory distress, accessory muscle use Cardiovascular Exam: Present: tachycardia GI/Abdominal exam: Present: soft. Absent: distended, tenderness Neurological exam: Present: alert, oriented X3, normal gait Psychiatric exam: Present: normal affect, normal mood Skin exam: Present: warm, dry, normal color. Absent: cyanosis, diaphoretic, petechiae, pallor Course Vital Signs 10/30/21 08:52 Temperature 99.7 F H Pulse Rate 115 H Respiratory 20 Rate Blood Pressure 95/63 O2 Sat by Pulse 96 Oximetry Medical Decision Making - Medical Decision Making Chest x-ray is negative for any acute cardiopulmonary disease. Patient is positive for coronavirus. She states that she did have coronavirus when she was , has not been vaccinated. She was directed to increase her fluid intake, take Tylenol Motrin as needed for any fevers, aches or pains. She was instructed to self quarantine for 10 days from symptom onset. Return to the emergency room with any new or concerning symptoms. Patient is agreeable to this plan of care. Case discussed with Dr. Mahan. - Lab Data Lab Results 10/30/21 Range/Units 09:16 Coronavirus (PCR) Detected A (Not Detectd) Disposition Clinical Impression: COVID-19 Disposition: HOME SELF-CARE Condition: Good Instructions (If sedation given, give patient instructions): Upper Respiratory Infection (ED), COVID-19 (Coronavirus Disease 2019) (ED) Additional Instructions: Increase your fluid intake. Stop vaping. Tylenol and or Motrin as needed for any fevers or body aches. Follow-up with the primary care doctor next week. Return to emergency room if any new or concerning symptoms. Is patient prescribed a controlled substance at d/c from ED?: No Referrals: None,Stated [Primary Care Provider] - 1-2 days Time of Disposition: 09:51
--- NOTE | 2021-10-30 09:38 | XR ---
EXAMINATION TYPE: XR chest 2V DATE OF EXAM: 10/30/2021 COMPARISON: Chest x-ray November 08, 2018 HISTORY: Cough and fever. TECHNIQUE: Frontal and lateral views of the chest are obtained. FINDINGS: There is no suspicious focal air space opacity, pleural effusion, or pneumothorax seen. T he cardiac silhouette size remains within normal limits. The osseous structures are intact. IMPRESSION: No acute pulmonary process. No significant change from prior.
[2021-10-30 11:27] VITALS: BP 106/63; PULSE 96; TEMP 98.7
== END 2021-10-30 11:26 | disposition home or self-care (01) ==
LOC: EC 08:40
DX: U07.1 COVID-19 (principal); F17.209 Nicotine dependence, unspecified, with unspecified nicotine-induced disorders
CPT/HCPCS: 71046; 87635